=== PATIENT | male | born 1960 | race Caucasian/White ===

== ENCOUNTER 2018-05-20 15:40 | Observation (INO) | payer MEDICAID ==
[2018-05-20] MEDS ORDERED: D5 1/2 NS w/ 20 mEq/L KCl 1,000 ML IV SCH (16:15)
[2018-05-20] MEDS ORDERED: cefTRIAXone 1 GM Vial IVPUSH SCH (16:15)
[2018-05-20] MEDS ORDERED: Iopamidol 612 MG/ML 100 ML Bottle IVPUSH ONE (16:19)
[2018-05-20] MEDS ORDERED: Sodium Chloride 0.9% 50 ML IV SCH (16:30)
[2018-05-20] MEDS ORDERED: Ketorolac 30 MG/ML SDV IVPUSH PRN (19:03)
[2018-05-20] MEDS ORDERED: Simvastatin 20 MG Tab PO SCH (21:00)
[2018-05-20] MEDS ORDERED: Famotidine 20 MG Tab PO SCH (21:00)
[2018-05-21] MEDS ORDERED: Levothyroxine 112 MCG Tab PO SCH (04:30)
[2018-05-21] MEDS ORDERED: glipiZIDE 5 MG Tab.ER PO SCH (08:00)
[2018-05-21] MEDS ORDERED: Lisinopril 10 MG Tab PO SCH (09:00)
[2018-05-21] MEDS ORDERED: Aspirin 81 MG Tab.EC PO SCH (09:00)
[2018-05-21] MEDS ORDERED: Pantoprazole 40 MG Tab.CR PO SCH (09:00)
--- NOTE | 2018-05-21 09:27 | PN ---
05/20/2018PATIENT NAME: MOISES AGLLARDO PATIENT PROFILE: The patient is a 57-year-old gentleman from [place], [place], who was admitted to the hospital earlier this afternoon because of an enlarging abdominal mass that was somewhat tender. He had this problem for about 1 week and it has been steadily getting worse. He has a history of type 2 diabetes mellitus on metformin. He is also on Prinivil for hypertension. After being admitted to the hospital, the patient underwent a CAT scan which showed a significant umbilical hernia with large bowel sitting in the hernia. There is question regarding incarceration was raised by the radiologist. His white count was 12,700. Blood sugar was 229. His vital signs were as follows. Height is 5 feet 7 inches, weight 297 pounds, blood pressure 157, 95, and pulse oxygen saturation 96, and pulse is 62. After being admitted to the hospital, the patient was kept on IV fluids, clear liquids, IV Toradol only for pain and discomfort. He was started back on his old medications. After receiving the report of the CAT scan, I did confirm with his surgeon at the [facility] in [place], [place]. It was felt that the patient should be transferred to [facility] for further care and possible surgery in the morning. This information was conveyed to the patient and his relatives and they are in agreement. He will go by ground ambulance in a stable condition. /[id number]/MODL
== END 2018-05-20 20:20 ==
LOC: KA.CT 15:40 → KA.MS 15:48
PROVIDERS: ADMIT Nurse Practitioner Family; ATTEND Family Medicine
DX: K46.9 Unspecified abdominal hernia without obstruction or gangrene (principal); I10 Essential (primary) hypertension; E11.9 Type 2 diabetes mellitus without complications; E78.00 Pure hypercholesterolemia, unspecified; E78.5 Hyperlipidemia, unspecified; E03.9 Hypothyroidism, unspecified; H49.22 Sixth [abducent] nerve palsy, left eye; E66.01 Morbid (severe) obesity due to excess calories; Z68.41 Body mass index [BMI] 40.0-44.9, adult; Z79.84 Long term (current) use of oral hypoglycemic drugs; Z79.899 Other long term (current) drug therapy
CPT/HCPCS: 74177; 82962; 96361; 96374; G0378; J0696; J3480; J7050; Q9967